=== PATIENT | male | born 1965 | race Caucasian/White ===

== ENCOUNTER → 2020-10-22 09:21 | Outpatient (BNVA) | payer SELFPAY | PROVIDERS: Family Provider Nurse Practitioner; Visit Provider Nurse Practitioner | DX: R73.9 Hyperglycemia, unspecified (principal); M51.36 Other intervertebral disc degeneration, lumbar region; J44.9 Chronic obstructive pulmonary disease, unspecified | CPT/HCPCS: 80053; 80061; 81000; 83036; 84443; 85025 ==

== ENCOUNTER 2021-03-12 19:58 | Emergency (ER) | payer SELFPAY ==
[2021-03-12 20:15] VITALS: BP 144/80; PULSE 108; RESP 20; TEMP 39.4; O2SAT 93; BMI 33.3
--- NOTE | 2021-03-12 20:42 | XRR_ITS ---
PROCEDURE INFORMATION: Exam: XR Chest Exam date and time: 03/12/2021 8:42 PM Age: 55 years old Clinical indication: Dyspnea and fever; Additional info: Fever/ dyspnea TECHNIQUE: Imaging protocol: XR of the chest. Views: 1 view. COMPARISON: CT chest [facility] [id number] 12/27/2016 11:17 AM FINDINGS: Lungs: Bibasilar atelectasis versus infiltrate. Pleural spaces: Unremarkable. No pleural effusion. No pneumothorax. Heart/Mediastinum: Unremarkable. No cardiomegaly. Bones/joints: Unremarkable. XR/XR chest 1V portable [id number] IMPRESSION: Bibasilar atelectasis versus infiltrate.
[2021-03-12] MEDS: acetaminophen 325 mg Tablet 1000 MG PO (21:11)
[2021-03-12] MEDS: ketorolac 30 mg/mL INJ 15 MG IVP (21:12)
[2021-03-12] MEDS: sodium chloride 0.9% 1,000 ML 999 ML IV (21:14)
[2021-03-12 21:19] VITALS: O2SAT 96
[2021-03-12 21:27] LABS: Basophils % 0.6 %; Eosinophils % 0.2 %; Hematocrit 47.1 % (42.0-52.0); Hemoglobin 15.7 g/dL (11.7-16.6); Lymphocytes # 0.9 10^3/uL (0.8-4.8); Lymphocytes % 13.9 %; Mean Corpuscular HGB Conc 33.3 g/dL (30.0-36.0); Mean Corpuscular Hemoglobin 31.3 pg (28.0-34.0); Mean Corpuscular Volume 93.8 fL (80-94); Mean Platelet Volume 11.2 fL (7.4-10.4); Monocytes # 0.7 10^3/uL (0.2-0.9); Monocytes % 10.5 %; Neutrophils # 4.89 10^3/uL (1.8-7.7); Neutrophils % 74.6 %; Nucleated Red Blood Cells % 0 %; Platelet Count 212 10^3/cmm (130-400); Red Blood Count 5.02 10^6/uL (4.1-5.3); Red Cell Distribution Width 13.2 % (12.1-15.1); White Blood Count 6.6 10^3/uL (4.0-10.0)
[2021-03-12 21:35] LABS: Add Urine Microscopic? YES; Bilirubin Urine Neg (Negative); Blood Urine 2+ (Negative); Glucose Urine UA Norm (Normal); Ketones Urine Negative (Negative); Leukocyte Esterase Urine Negative (Negative); Nitrate Urine Negative (Negative); Protein Urine Neg (Negative); Urine Appearance Clear (CLEAR); Urine Color Yellow (Yellow); Urobilinogen Urine Norm (Negative); pH Urine 5 (5-7)
[2021-03-12] MEDS: albuterol 8 gm MDI 2 PUFF INHALATION (21:41)
[2021-03-12 21:42] VITALS: PULSE 94; RESP 22; O2SAT 95
[2021-03-12 21:43] LABS: Add Urine Culture? No; RBC Urine 0-4 /hpf (0-2)
[2021-03-12 21:44] LABS: Lactic Sepsis W/Reflex 1.4 mmol/L (0.5-2.2)
[2021-03-12 21:46] LABS: Troponin(5th) Baseline 7 ng/L (0-15)
[2021-03-12 21:51] LABS: Influenza A by IFA Negative (Negative); Influenza B by IFA Negative (Negative); SARS Covid-2 Antigen Negative (Negative)
[2021-03-12 21:52] LABS: Rapid Strep A Test Negative (Negative)
[2021-03-12 21:56] LABS: Alanine Aminotransferase 11 U/L (0-41); Albumin Level 4.5 g/dL (3.5-5.2); Alkaline Phosphatase 117 IU/L (40-130); Anion Gap 15.7 (5-19); Aspartate Amino Transferase 12 U/L (0-40); Blood Urea Nitrogen 9 mg/dL (6-20); Carbon Dioxide 26 mmol/L (22-29); Chloride 96 mmol/L (98-107); Creatinine Clr Calc Pharmacy 93.7429; Globulin 2.6 g/dL (1.3-4.6); Glucose 97 mg/dL (65-115); NT Pro B Type Natriuretic Pept 95 pg/mL (0-125); Osmolality Calculated 277 mOsm/kg (285-295); Potassium 3.7 mmol/L (3.5-5.1); Sodium 134 mmol/L (136-145); Total Bilirubin 0.5 mg/dL (0.15-1.2); Total Protein 7.1 g/dL (6.6-8.7)
[2021-03-12 22:14] VITALS: BP 98/56; PULSE 89; RESP 17; TEMP 37.5; O2SAT 95
[2021-03-12 22:28] VITALS: BP 100/64; PULSE 84; RESP 16; TEMP 37.6; O2SAT 93
--- NOTE | 2021-03-12 22:44 | ECG_ITS ---
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 Measurements Intervals [place] Rate: 93 P: 19 DC: 118 QRS: 55 QRSD: 93 T: 57 QT: 322 QTc: 401 Interpretive Statements SINUS RHYTHM WITH SHORT DC INTERVAL Compared to ECG 12/28/2016 18:02:28 No significant changes Electronically Signed On 03-13-2021 20:18:54 CDT by Gallito Medina M.D. [id number]
--- NOTE | 2021-03-12 22:47 | ED_ITS ---
HPI - COVID General: Chief Complaint: COVID symptoms Stated Complaint: Fever\Short of Breathe\ Time Seen by Provider: 03/12/21 20:36 Triage information: Has fever, cough or shortness of breath . No known COVID + exposure last 14 days History of Present Illness: HPI Narrative: Kenneth is a 55-year-old male with past medical history COPD, atrial fibrillation on Xarelto who comes to the ER complaining he has not felt well for a month and over the past 3 days he has felt worse. He is complaining of headache, body aches, fever with temperature measured at 103 on arrival. Denies neck pain and stiffness. He has been exposed to children with RSV at home. No known Covid contacts. No vaccination for Covid. Also admits shortness of breath. Denies chest pain. COVID 19 common symptoms: positive fever(s), chills, dyspnea, fatigue, body aches and headache(s); negative non-productive cough, productive cough, throat pain, nasal congestion or diarrhea COVID 19 other sytmptoms: negative chest pain or confusion COVID Results: SARS-CoV-2 Antigen (Rapid) Negative (Negative) 03/12/21 21:17 03/12/21 Review of Systems General: Reports: 10 or more systems reviewed and unremarkable except in HPI and below Const: Reports: fever(s), chills, body aches and fatigue Eyes: Denies: change in vision, blurry vision or eye redness ENMT: Denies: throat pain, swelling of lips/tongue, ear or mastoid pain or nasal congestion Card: Denies: chest pain, palpitations, irregular heart rhythm, edema, dyspnea on exertion or orthopnea Resp: Reports: dyspnea and wheezing; Denies: productive cough or non-productive cough GI: Denies: abdominal pain, diarrhea or GI cramping : Denies: flank pain, urinary frequency or urinary urgency Musc: Denies: neck pain, back pain, extremity pain, joint pain, joint redness, limited range of motion or muscle weakness Skin/Breast: Denies: rash, pruritus, erythema, skin pain or skin tenderness Neuro: Reports: headache(s); Denies: numbness in extremities, weakness in extremities, sensory changes, difficulty walking, dizziness, confusion or Slurred speech present Psych: Denies: anxiety or depression Endo: Denies: polyuria All/Imm: Denies: urticaria, throat swelling or tongue swelling PFSH ED PFSH: Medical History (Updated 03/12/21 @ 22:47 by Theo Davis MD) Anxiety Atrial fibrillation Chronic pain of left heel DDD (degenerative disc disease), lumbar History of CVA with residual deficit Surgical History (Updated 10/22/20 @ 09:02 by GUTIERREZ Falk) History of coronary angiogram 2016 at [facility] History of foot surgery left heel 2014 Family History Other Dementia Hypertension Lung disease Stroke Denies family history of Diabetes Clotting disorder Chronic kidney disease (CKD) Anesthesia complication Bleeding disorder Cancer Social History Smoking and tobacco status: current every day smoker Second hand smoke exposure: No Smoking risk assessment/counseling performed?: Yes Alcohol intake: current Alcohol intake frequency: holidays/special occasions only Desire information about alcohol rehabilitation?: No Counseling given: No Desire information about substance/drug rehabilitation?: No Counseling given: No Adopted: No Caregiver/support person: No Lives independently: Yes Household members: children Housing: House Marital status: Number of children: 1 Number of grandchildren: 2 service: No Current occupational status: employed Current occupation: [employer] History of recent travel: No Current gender identity: Male Physical Exam Narrative: EXAM NARRATIVE: Fever 103. Sinus rhythm upper 90s heart rate. Const: COMMON NORMALS: no acute distress, average body habitus, patient oriented x3, no limitations, healthy appearing, alert and well nourished GENERAL APPEARANCE: cooperative, comfortable, well kempt and well developed ORIENTATION/CONSCIOUSNESS: Yes awake, Yes oriented to person, Yes oriented to place and Yes oriented to time HENMT: COMMON NORMALS: normocephalic, external ears normal and Normal external nose present HEAD & SCALP: normal to inspection and normocephalic NOSE: Normal external nose present EXTERNAL EAR: Yes external ears normal MOUTH: Normal oral and palatal mucosa present THROAT: posterior oropharynx normal Eye: COMMON NORMALS: Equal, round and reactive pupils present and EOMs intact bilaterally GENERAL EYE: appearance normal, both eyes and all related structures PUPIL: Yes Equal, round and reactive pupils present Neck/C-Spine: COMMON NORMALS: full ROM, no lymphadenopathy, no meningeal signs and no JVD GENERAL: Yes normal visual inspection Lymph: LYMPHATIC: no lymphadenopathy noted Chest: COMMONS NORMALS: normal inspection of the chest and normal palpation of entire chest wall Resp: COMMON NORMALS: normal respiratory effort, No retractions, No use of accessory muscles, clear to auscultation bilaterally and percussion normal EFFORT & INSPECTION: Yes able to speak in complete sentences AUSCULTATION: clear to auscultation bilaterally PERCUSSION: percussion normal Cardio: COMMON NORMALS: no JVD, regular rate, regular rhythm, S1 normal heart sound present, S2 normal heart sound present and Peripheral pulses 2+ throughout RATE: regular rate RHYTHM: regular rhythm HEART SOUNDS: S1 normal heart sound present and S2 normal heart sound present PERIPHERAL PULSES: Peripheral pulses 2+ throughout OTHER: Sinus rhythm upper 90s heart rate. GI: COMMON NORMALS: Normal to inspection, nondistended, normoactive bowel sounds present, Soft to palpation, non-tender and no masses INSPECTION: Yes normal to inspection PALPATION: Yes Soft to palpation : COMMON NORMALS: Yes no CVA tenderness BLADDER/KIDNEY EXAM: Yes no CVA tenderness Back/Pelvis: COMMON NORMALS: no CVA tenderness, thoracic and lumbar spine normal to inspection, no thoracic nor lumbar tenderness and thoraco-lumbar ROM normal Extremity: COMMON NORMALS: normal to inspection, full ROM, capillary refill normal, no joint enlargement and no pedal edema GENERAL: Yes normal exam except as noted Neuro: COMMON NORMALS: patient oriented x3, CN's II-XII intact bilaterally, moves all extremities, no focal motor deficits, no sensory deficits noted and gait normal SENSORIUM/ORIENTATION: Yes alert, Yes oriented to person, Yes oriented to place and Yes oriented to time MENINGEAL SIGNS: Yes no meningeal signs Psych: COMMON NORMALS: mental status grossly normal, Normal thought process present, cooperative, normal affect and speech normal APPEARANCE: Yes well kempt ATTITUDE: Yes calm SPEECH: Yes normal speech THOUGHT PROCESS: Normal thought process present Skin: COMMON NORMALS: no rashes or lesions noted GENERAL SKIN EXAM: no rashes or lesions noted Course Vital Signs: Vital signs: Vital Signs Temperature 99.6 F 03/12/21 22:28 Pulse Rate 84 03/12/21 22:28 Respiratory Rate 16 07/17/21 22:28 Blood Pressure 100/64 07/17/21 22:28 Pulse Oximetry 93 03/12/21 22:28 MDM - COVID MDM Narrative: Medical decision making narrative: The patient came in with flulike symptoms and was swabbed for Covid, influenza, strep, RSV and all were negative. He also has chronic COPD and has been feeling bad for a month he says. He was given a liter of fluids, Tylenol, Toradol, albuterol. Within a couple hours his temperature reduced to 99.6 with great improvement of his symptoms. He is no longer short of breath or fatigue. His headache is much improved and body aches much improved. I gave him prednisone and azithromycin as his chest x-ray did show a pneumonia as well. Likely triggered a COPD exacerbation. I recommended he see his primary care physician early next week and return to the ER with any worsening symptoms. Drink lots of fluids. Tylenol for fever. Lab Data: Labs: Lab Results 03/12/21 03/12/21 03/12/21 Range/Units 21:17 21: 21:17 WBC 6.6 (4.0-10.0) 10^3/ uL RBC 5.02 (4.1-5.3) 10^6/u L Hgb 15.7 (11.7-16.6) g/dL Hct 47.1 (42.0-52.0) % MCV 93.8 (80-94) fL MCH 31.3 (28.0-34.0) pg MCHC 33.3 (30.0-36.0) g/dL RDW 13.2 (12.1-15.1) % Plt Count 212 (130-400) 10^3/c mm MPV 11.2 H (7.4-10.4) fL Neut % (Auto) 74.6 % Lymph % (Auto) 13.9 % [place] % (Auto) 10.5 % Eos % (Auto) 0.2 % Baso % (Auto) 0.6 % Neut # (Auto) 4.89 (1.8-7.7) 10^3/u L Lymph # (Auto) 0.9 (0.8-4.8) 10^3/u L [place] # (Auto) 0.7 (0.2-0.9) 10^3/u L Eos # (Auto) 0.0 (0.0-0.8) 10^3/u L Baso # (Auto) 0.0 (0.0-0.1) 10^3/u L Nucleated RBC % (a uto) 0 % Nucleated RBCs # 0.0 /100WBC Sodium 134 L (136-145) mmol/L Potassium 3.7 (3.5-5.1) mmol/L Chloride 96 L (98-107) mmol/L Carbon Dioxide 26 (22-29) mmol/L Anion Gap 15.7 (5-19) BUN 9 (6-20) mg/dL Creatinine 0.9 (0.7-1.2) mg/dL GFR Calculation 87.0 L (90-130) mL/min Glucose 97 (65-115) mg/dL Calculated Osmolal ity 277 L (285-295) mOsm/k g Lactic Acid (0.5-2.2) mmol/L Calcium 9.0 (8.5-10.5) mg/dL Total Bilirubin 0.5 (0.15-1.2) mg/dL AST 12 (0-40) U/L ALT 11 (0-41) U/L Alkaline Phosphata se 117 (40-130) IU/L Troponin T Baselin e 7 (0-15) ng/L NT-Pro-B Natriuret Pep 95 (0-125) pg/mL Total Protein 7.1 (6.6-8.7) g/dL Albumin 4.5 (3.5-5.2) g/dL Globulin 2.6 (1.3-4.6) g/dL Urine Color (Yellow) Urine Appearance (CLEAR) Urine pH (5-7) Ur Specific Gravit y (1.005-1.030) Urine Protein (Negative) Urine Glucose (UA) (Normal) Urine Ketones (Negative) Urine Blood (Negative) Urine Nitrate (Negative) Urine Bilirubin (Negative) Urine Urobilinogen (Negative) mg/dL Ur Leukocyte Sandra ase (Negative) Urine RBC (0-2) /hpf Urine WBC (0-5) /hpf Ur Squamous Epith Cells (0-5) /hpf Amorphous Sediment Urine Bacteria (NONE) /hpf Influenza Type A A g (Negative) Influenza Type B A g (Negative) SARS-CoV-2 Ag (Rap id) (Negative) Group A Strep Rapi d (Negative) 03/12/21 03/12/21 03/12/21 Range/Units 21:17 21:17 21:17 WBC (4.0-10.0) 10^3/ uL RBC (4.1-5.3) 10^6/u L Hgb (11.7-16.6) g/dL Hct (42.0-52.0) % MCV (80-94) fL MCH (28.0-34.0) pg MCHC (30.0-36.0) g/dL RDW (12.1-15.1) % Plt Count (130-400) 10^3/c mm MPV (7.4-10.4) fL Neut % (Auto) % Lymph % (Auto) % [place] % (Auto) % Eos % (Auto) % Baso % (Auto) % Neut # (Auto) (1.8-7.7) 10^3/u L Lymph # (Auto) (0.8-4.8) 10^3/u L [place] # (Auto) (0.2-0.9) 10^3/u L Eos # (Auto) (0.0-0.8) 10^3/u L Baso # (Auto) (0.0-0.1) 10^3/u L Nucleated RBC % (a uto) % Nucleated RBCs # /100WBC Sodium (136-145) mmol/L Potassium (3.5-5.1) mmol/L Chloride (98-107) mmol/L Carbon Dioxide (22-29) mmol/L Anion Gap (5-19) BUN (6-20) mg/dL Creatinine (0.7-1.2) mg/dL GFR Calculation (90-130) mL/min Glucose (65-115) mg/dL Calculated Osmolal ity (285-295) mOsm/k g Lactic Acid 1.4 (0.5-2.2) mmol/L Calcium (8.5-10.5) mg/dL Total Bilirubin (0.15-1.2) mg/dL AST (0-40) U/L ALT (0-41) U/L Alkaline Phosphata se (40-130) IU/L Troponin T Baselin e (0-15) ng/L NT-Pro-B Natriuret Pep (0-125) pg/mL Total Protein (6.6-8.7) g/dL Albumin (3.5-5.2) g/dL Globulin (1.3-4.6) g/dL Urine Color Yellow (Yellow) Urine Appearance Clear (CLEAR) Urine pH 5 (5-7) Ur Specific Gravit y 1.010 (1.005-1.030) Urine Protein Neg (Negative) Urine Glucose (UA) Norm (Normal) Urine Ketones Negative (Negative) Urine Blood 2+ H (Negative) Urine Nitrate Negative (Negative) Urine Bilirubin Neg (Negative) Urine Urobilinogen Norm (Negative) mg/dL Ur Leukocyte Sandra ase Negative (Negative) Urine RBC 0-4 H (0-2) /hpf Urine WBC None (0-5) /hpf Ur Squamous Epith Cells None (0-5) /hpf Amorphous Sediment Not Reportable Urine Bacteria None (NONE) /hpf Influenza Type A A g (Negative) Influenza Type B A g (Negative) SARS-CoV-2 Ag (Rap id) (Negative) Group A Strep Rapi d Negative (Negative) 03/12/21 03/12/21 Range/Units 21:17 21:17 WBC (4.0-10.0) 10^3/ uL RBC (4.1-5.3) 10^6/u L Hgb (11.7-16.6) g/dL Hct (42.0-52.0) % MCV (80-94) fL MCH (28.0-34.0) pg MCHC (30.0-36.0) g/dL RDW (12.1-15.1) % Plt Count (130-400) 10^3/c mm MPV (7.4-10.4) fL Neut % (Auto) % Lymph % (Auto) % [place] % (Auto) % Eos % (Auto) % Baso % (Auto) % Neut # (Auto) (1.8-7.7) 10^3/u L Lymph # (Auto) (0.8-4.8) 10^3/u L [place] # (Auto) (0.2-0.9) 10^3/u L Eos # (Auto) (0.0-0.8) 10^3/u L Baso # (Auto) (0.0-0.1) 10^3/u L Nucleated RBC % (a uto) % Nucleated RBCs # /100WBC Sodium (136-145) mmol/L Potassium (3.5-5.1) mmol/L Chloride (98-107) mmol/L Carbon Dioxide (22-29) mmol/L Anion Gap (5-19) BUN (6-20) mg/dL Creatinine (0.7-1.2) mg/dL GFR Calculation (90-130) mL/min Glucose (65-115) mg/dL Calculated Osmolal ity (285-295) mOsm/k g Lactic Acid (0.5-2.2) mmol/L Calcium (8.5-10.5) mg/dL Total Bilirubin (0.15-1.2) mg/dL AST (0-40) U/L ALT (0-41) U/L Alkaline Phosphata se (40-130) IU/L Troponin T Baselin e (0-15) ng/L NT-Pro-B Natriuret Pep (0-125) pg/mL Total Protein (6.6-8.7) g/dL Albumin (3.5-5.2) g/dL Globulin (1.3-4.6) g/dL Urine Color (Yellow) Urine Appearance (CLEAR) Urine pH (5-7) Ur Specific Gravit y (1.005-1.030) Urine Protein (Negative) Urine Glucose (UA) (Normal) Urine Ketones (Negative) Urine Blood (Negative) Urine Nitrate (Negative) Urine Bilirubin (Negative) Urine Urobilinogen (Negative) mg/dL Ur Leukocyte Sandra ase (Negative) Urine RBC (0-2) /hpf Urine WBC (0-5) /hpf Ur Squamous Epith Cells (0-5) /hpf Amorphous Sediment Urine Bacteria (NONE) /hpf Influenza Type A A g Negative (Negative) Influenza Type B A g Negative (Negative) SARS-CoV-2 Ag (Rap id) Negative (Negative) Group A Strep Rapi d (Negative) COVID Results: SARS-CoV-2 Antigen (Rapid) Negative (Negative) 03/12/21 21:17 03/12/21 Discharge Plan Discharge Patient Disposition: Home Clinical Impression: Pneumonia, COPD (chronic obstructive pulmonary disease) Condition: Stable Prescriptions: New azithromycin 250 mg tablet 250 mg PO DAILY 4 Days Qty: 4 RF: 0 Medrol (Jason) 4 mg tablets,dose pack See Rx Instructions .ROUTE .COMPLEX Qty: 21 RF: 0 albuterol sulfate 90 mcg/actuation HFA aerosol inhaler 2 inh inhalation Q6H PRN (Reason: shortness of breath or wheezing) 30 Days RF: 0 No Action albuterol sulfate 2.5 mg /3 mL (0.083 %) solution for nebulization 2.5 mg inhalation Q4H PRN (Reason: shortness of breath or wheezing) Qty: 300 RF: 0 diclofenac sodium 75 mg tablet,delayed release (DR/EC) 75 mg PO BID RF: 0 Hold Instructions: Doctor's Order metoprolol tartrate 50 mg tablet 50 mg PO BID Qty: 60 RF: 2 Xarelto 20 mg tablet 20 mg PO DAILY Qty: 30 RF: 2 tizanidine 4 mg tablet 4 mg PO TID Qty: 90 RF: 2 gabapentin 600 mg tablet 600 mg PO TID Qty: 90 RF: 2 Discharge Orders: Discharge ED (Routine); Ordered 03/12/21 Ordered By: Theo Davis Discharge Diet: Advance as tolerated Discharge Activity: Resume usual activity Patient Instructions: Chronic Obstructive Pulmonary Disease (ED), Bacterial Pneumonia (ED), Opioid Safety Activity Restrictions/Additional Instructions: You are likely suffering from pneumonia and a COPD exacerbation. Please take the antibiotics and steroids as well as use your albuterol at home to help you breathe. Return to the ER at anytime with worsening symptoms. Take Tylenol for pain and fever. Drink lots of fluids and follow-up with your primary care physician early next week. Again return to the ER at anytime with worsening symptoms. Coding Level of Care Code ED Food Services Coordinator for Shannan Crawford
[2021-03-12] MEDS: predniSONE 20 mg Tablet 40 MG PO (23:13)
[2021-03-12] MEDS: azithromycin 250 mg Tablet 500 MG PO (23:13)
[2021-03-12 23:30] VITALS: BP 110/70; PULSE 81; RESP 18; O2SAT 95
== END 2021-03-12 23:36 | disposition home or self-care (01) ==
PROVIDERS: Emergency Provider Family Medicine
DX: J44.0 Chronic obstructive pulmonary disease with (acute) lower respiratory infection (principal); J18.9 Pneumonia, unspecified organism; Z86.73 Personal history of transient ischemic attack (TIA), and cerebral infarction without residual deficits; F17.210 Nicotine dependence, cigarettes, uncomplicated; Z20.822 Contact with and (suspected) exposure to COVID-19
CPT/HCPCS: 71045; 80053; 81001; 83605; 83880; 84484; 85025; 87040; 87081; 87426; 87804; 87880; 93005; 94640; 96361; 96374; 99284; J1885; J3535; J7030; J7512; Q0144

== ENCOUNTER → 2021-03-15 13:41 | Outpatient (BNVA) | payer SELFPAY | PROVIDERS: PCP Nurse Practitioner; Visit Provider Nurse Practitioner | DX: J44.9 Chronic obstructive pulmonary disease, unspecified (principal) | CPT/HCPCS: 71046; 85025 ==

== ENCOUNTER 2021-03-23 11:11 | Outpatient (CLI) | payer SELFPAY ==
--- NOTE | 2021-03-23 11:30 | XR_ITS ---
WS: [id number] Comparison 08/13/2019 Exam: XR lumbar spine 2-3V* [id number] Date/Time of Exam: 03/23/2021 11:20 AM Reason For Exam: M51.36 - Other intervertebral disc degeneration, lumbar r... No acute fracture or dislocation. Degenerative vacuum disks at L4-5 and L5-S1. Spondylosis. Slight de generative narrowing of the remaining discs. Facet arthropathy at all levels. Posterior elements are otherwise intact. SI joints are open. XR/XR lumbar spine 2-3V* [id number] IMPRESSION: 1. Moderate degenerative changes of the lumbar spine. No fracture or malalignme nt noted. Similar findings on prior study.
== END 2021-03-23 11:12 | disposition home or self-care (01) ==
PROVIDERS: PCP Nurse Practitioner; Visit Provider Nurse Practitioner Family
DX: M51.36 Other intervertebral disc degeneration, lumbar region (principal); M54.5 Low back pain
CPT/HCPCS: 72100

== ENCOUNTER 2021-05-06 16:03 | Outpatient (CLI) | payer SELFPAY ==
--- NOTE | 2021-05-06 16:45 | MR_ITS ---
WS: [id number] MRI LUMBAR SPINE NONCONTRAST HISTORY: M54.5 - Low back pain COMPARISON: 03/23/2021 TECHNIQUE: Sagittal and axial multisequence imaging is submitted. Straightening and reversal of the cervical spine. Mild ectopia cerebellar tonsils. Moderate degenerat kel disc disease throughout the cervical and thoracic spine. Straightening and mild RIGHT curvature of the lumbar spine. Disc spaces are narrowed. Most significan t degeneration is at L4-5. No lumbar spine fracture. Reactive marrow edema along several of the endplates. Fatty replacement wit hin the vertebral bodies and hemangiomas. Conus terminates normally at L1-2 disc level. L1-L2: Mild annular disc bulging with ligamentum flavum hypertrophy and facet arthritis. There is an annular fissure in the LEFT foramen. Mild bilateral foraminal narrowing. L2-L3: Osteophytic ridging and disc bulging and ligamentum flavum hypertrophy and facet arthritis. Mi ld bilateral subarticular recess and foraminal stenosis. L3-L4: Mild annular disc bulging and osteophytic ridging. Moderate LEFT facet joint arthritis. Mild a symmetry of the LEFT ligamentum flavum hypertrophy. Shallow central disc protrusion. Very mild centra l stenosis and encroachment into the lateral recesses. Moderate bilateral foraminal subarticular rece ss stenosis, slightly greater on the LEFT. L4-L5: Marked annular disc bulging and osteophytic ridging encroaching into the thecal sac and forame n. Facet joint arthritis and disc and osteophyte causing mild central stenosis. Moderate to severe bi lateral subarticular recess and foraminal stenosis. There is contact on the L4 and L5 nerve roots colette aterally. L5-S1: Mild asymmetric disc bulging, greatest to the LEFT. Complete effacement of fat in the foramen bilaterally. Severe bilateral subarticular and foraminal stenosis. There is also a central disc protr usion with moderate facet joint arthritis. Significant contact upon the L5 nerve roots bilaterally. Paravertebral soft tissues are negative. MR/MR lumbar spine wo con* [id number] IMPRESSION: 1. Advanced degenerative changes of the lumbar spine. 2. Severe bilateral subarticular recess and foraminal stenosis at L5-S1 with significant encroachment on the L5 nerve roots bilaterally. 3. Moderate to severe bilateral subarticular recess and foraminal stenosis at L4-5. Disc and osteophyte contact on both the L4 and L5 nerve roots. 4. Mild central stenosis with a central disc protrusion at L4-5. 5. Moderate bilateral foraminal subarticular recess stenosis, LEFT greater mery n RIGHT at L3-4. Mild bilateral foraminal stenosis at L1-2 and L2-3 and mild bi lateral subarticular recess stenosis at L2-3.
== END 2021-05-06 16:04 | disposition home or self-care (01) ==
LOC: RADSHAW 16:05
PROVIDERS: PCP Nurse Practitioner; Visit Provider Nurse Practitioner Family
DX: M51.36 Other intervertebral disc degeneration, lumbar region (principal); R26.9 Unspecified abnormalities of gait and mobility; M48.07 Spinal stenosis, lumbosacral region; M48.061 Spinal stenosis, lumbar region without neurogenic claudication; M25.78 Osteophyte, vertebrae; M51.26 Other intervertebral disc displacement, lumbar region
CPT/HCPCS: 72148

== ENCOUNTER → 2021-06-02 11:16 | Outpatient (BNVA) | payer SELFPAY | PROVIDERS: PCP Nurse Practitioner; Referring Provider Nurse Practitioner Family; Visit Provider Physician Assistant | DX: M54.50 Low back pain, unspecified (principal); M47.816 Spondylosis without myelopathy or radiculopathy, lumbar region | CPT/HCPCS: 72120 ==

== ENCOUNTER 2021-08-14 10:05 | Emergency (ER) | payer BC, SELFPAY ==
[2021-08-14] VITALS (10 sets, daily range): BP systolic 107–132; BP diastolic 71–89; PULSE 80–106; RESP 17–20; TEMP 36.1; O2SAT 89–95; BMI 31.6
--- NOTE | 2021-08-14 10:22 | XRR_ITS ---
PROCEDURE INFORMATION: Exam: XR Chest Exam date and time: 08/14/2021 10:22 AM Age: 56 years old Clinical indication: Shortness of breath; Additional info: SOB TECHNIQUE: Imaging protocol: XR of the chest. Views: 1 view. Total images: 1 COMPARISON: CR XR chest 2V* [id number] 03/15/2021 1:40 PM FINDINGS: Lungs: Unremarkable. No consolidation. Pleural spaces: Unremarkable. No pleural effusion. No pneumothorax. Heart/Mediastinum: Unremarkable. No cardiomegaly. Bones/joints: Old right rib fractures are evident. XR/XR chest 1V portable [id number] IMPRESSION: No acute cardiopulmonary process.
--- NOTE | 2021-08-14 10:23 | ECG_ITS ---
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
--- NOTE | 2021-08-14 10:24 | ED_ITS ---
HPI - SOB/Dyspnea General: Chief Complaint: Shortness of Breath/Dyspnea Stated Complaint: TROUBLE BREATHING Time Seen by Provider: 08/14/21 10:09 Source: patient Mode of arrival: ambulatory Limitations: no limitations History of Present Illness: HPI Narrative: 56-year-old male has a history of longtime smoker with a history of COPD states that over the last 3 to 4 days has been having increasing cough shortness of breath and wheezing he states he feels like he just cannot get a deep breath in. He states he has been having some sharp chest pain as well especially with his cough. He states that he still currently smokes and is also been out of his nebulizer nebs over the last few weeks. Denies any worst improving factors. Associated symptoms: Deny abdominal pain, chest pain, fever(s), nausea or vomiting Review of Systems Const: Denies: fever(s), chills, body aches or change in appetite Eyes: Denies: blurry vision or eye discomfort ENMT: Denies: throat pain or dental pain Card: Denies: chest pain Resp: Reports: dyspnea, non-productive cough and wheezing GI: Denies: abdominal pain, nausea, vomiting or diarrhea : Denies: dysuria Musc: Denies: neck pain or back pain Skin/Breast: Denies: rash Neuro: Denies: headache(s) Psych: Denies: depression Nico/Lymph: Denies: easy bruising All/Imm: Denies: urticaria PFSH ED PFSH: Medical History Anxiety Atrial fibrillation Chronic pain of left heel DDD (degenerative disc disease), lumbar History of CVA with residual deficit Surgical History History of coronary angiogram 2017 at [facility] History of foot surgery left heel 2014 Family History Other Dementia Hypertension Lung disease Stroke Denies family history of Diabetes Clotting disorder Chronic kidney disease (CKD) Anesthesia complication Bleeding disorder Cancer Social History Smoking and tobacco status: never smoked Second hand smoke exposure: No Smoking risk assessment/counseling performed?: Yes Alcohol intake: current Alcohol intake frequency: holidays/special occasions only Desire information about alcohol rehabilitation?: No Counseling given: No Desire information about substance/drug rehabilitation?: No Counseling given: No Adopted: No Caregiver/support person: No Lives independently: Yes Household members: children Housing: House Marital status: Number of children: 1 Number of grandchildren: 2 service: No Current occupational status: employed Current occupation: [employer] History of recent travel: No Current gender identity: Male Physical Exam Const: COMMON NORMALS: no acute distress, patient oriented x3 and healthy appearing HENMT: COMMON NORMALS: normocephalic and atraumatic HEAD & SCALP: normocephalic and atraumatic Eye: COMMON NORMALS: Equal, round and reactive pupils present and EOMs intact bilaterally PUPIL: Yes Equal, round and reactive pupils present Neck/C-Spine: COMMON NORMALS: full ROM and supple Chest: COMMONS NORMALS: normal inspection of the chest and normal palpation of entire chest wall Resp: COMMON NORMALS: normal respiratory effort, No retractions, No use of accessory muscles and clear to auscultation bilaterally AUSCULTATION: clear to auscultation bilaterally Cardio: COMMON NORMALS: regular rate, regular rhythm and No murmurs present (Cardio) RATE: regular rate RHYTHM: regular rhythm GI: COMMON NORMALS: Normal to inspection, nondistended, normoactive bowel sounds present, Soft to palpation, non-tender and no masses PALPATION: Yes Soft to palpation Extremity: COMMON NORMALS: normal to inspection and full ROM Neuro: COMMON NORMALS: patient oriented x3, moves all extremities and no focal motor deficits Psych: COMMON NORMALS: mental status grossly normal, Normal thought process present and cooperative THOUGHT PROCESS: Normal thought process present Skin: COMMON NORMALS: no rashes or lesions noted and no wounds GENERAL SKIN EXAM: no rashes or lesions noted Course Vital Signs: Vital signs: Vital Signs Temperature 97.0 F L 08/14/21 10:13 Pulse Rate 100 08/14/21 12:04 Respiratory Rate 17 08/14/21 11:16 Blood Pressure 110/76 08/14/21 12:04 Pulse Oximetry 92 08/14/21 12:04 MDM - SOB/Dyspnea MDM Narrative: Medical decision making narrative: Patient presents here with cough and dyspnea COPD exacerbation he does feel improved here after breathing treatment still requires 2 L of oxygen he is in minimal distress here no pneumonia D-dimer is negative no signs of Covid we will set him up with home oxygen prescribe him albuterol nebs and steroids and get him follow-up with pulmonology he understands agrees to plan. Lab Data: Labs: Lab Results 08/14/21 08/14/21 08/14/21 10:54 10:54 10:54 WBC 5.4 10^3/uL 10^3/ uL (4.0-10.0) RBC 5.14 10^6/uL 10^6 /uL (4.1-5.3) Hgb 16.1 g/dL g/dL (11.7-16.6) Hct 48.0 % % (42.0-52.0) MCV 93.4 fl fl (80-94) MCH 31.3 pg pg (28.0-34.0) MCHC 33.5 g/dL g/dL (30.0-36.0) RDW 12.8 % % (12.1-15.1) Plt Count 202 10^3/cmm 10^3 /cmm (130-400) MPV 11.1 fL H fL (7.4-10.4) Neut % (Auto) 70.2 % % Lymph % (Auto) 16.2 % % [place] % (Auto) 12.4 % % Eos % (Auto) 0.2 % % Baso % (Auto) 0.6 % % Neut # (Auto) 3.81 10^3/uL 10^3 /uL (1.8-7.7) Lymph # (Auto) 0.9 10^3/uL 10^3/ uL (0.8-4.8) [place] # (Auto) 0.7 10^3/uL 10^3/ uL (0.2-0.9) Eos # (Auto) 0.0 10^3/uL 10^3/ uL (0.0-0.8) Baso # (Auto) 0.0 10^3/uL 10^3/ uL (0.0-0.1) Nucleated RBC % (a uto) 0 % % Nucleated RBCs # 0.0 /100WBC /100W BC D-Dimer Sodium Cancelled Potassium Cancelled Chloride Cancelled Carbon Dioxide Cancelled Anion Gap Cancelled BUN Cancelled Creatinine Cancelled GFR Calculation Cancelled Glucose Cancelled Calculated Osmolal ity Cancelled Calcium Cancelled Total Bilirubin Cancelled AST Cancelled ALT Cancelled Alkaline Phosphata se Cancelled Troponin T Baselin e 8 ng/L ng/L (0-15) NT-Pro-B Natriuret Pep Cancelled Total Protein Cancelled Albumin Cancelled Globulin Cancelled SARS-CoV-2 Ag (Rap id) 08/14/21 08/14/21 08/14/21 10:54 11:34 11:39 WBC RBC Hgb Hct MCV MCH MCHC RDW Plt Count MPV Neut % (Auto) Lymph % (Auto) [place] % (Auto) Eos % (Auto) Baso % (Auto) Neut # (Auto) Lymph # (Auto) [place] # (Auto) Eos # (Auto) Baso # (Auto) Nucleated RBC % (a uto) Nucleated RBCs # D-Dimer <= 0.27 ug/mIFEU ug/mIFEU (0-0.59) Sodium 139 mmol/L mmol/L (136-145) Potassium 4.0 mmol/L mmol/L (3.5-5.1) Chloride 100 mmol/L mmol/L (98-107) Carbon Dioxide 22 mmol/L mmol/L (22-29) Anion Gap 21.0 H (5-19) BUN 13 mg/dL mg/dL (6-20) Creatinine 0.7 mg/dL mg/dL (0.7-1.2) GFR Calculation 115.8 mL/min mL/m in (90-130) Glucose 96 mg/dL mg/dL (65-115) Calculated Osmolal ity 288 mOsm/kg mOsm/ kg (285-295) Calcium 8.9 mg/dL mg/dL (8.5-10.5) Total Bilirubin 0.7 mg/dL mg/dL (0.15-1.2) AST 15 U/L U/L (0-40) ALT 11 U/L U/L (0-41) Alkaline Phosphata se 78 IU/L IU/L (40-130) Troponin T Baselin e NT-Pro-B Natriuret Pep 135 pg/mL H pg/mL (0-125) Total Protein 7.3 g/dL g/dL (6.6-8.7) Albumin 4.1 g/dL g/dL (3.5-5.2) Globulin 3.2 g/dL g/dL (1.3-4.6) SARS-CoV-2 Ag (Rap id) Negative (Negative) Imaging Data^: CXR: Attestation: I personally reviewed and interpreted this imaging study as follows: Radiologist's impression: [address] [place] [address] XRay Report Signed Patient: Juan Alberto Wolfe Unit #: [id number] : 1965 Age/Sex: 56 / M ADM Date: 08/14/21 Loc: ER Room/Bed: Attending Dr: Ordering Provider/Ordering MD: Cruz Hernandez MD Date of Service: 08/14/21 Procedure(s): XR chest 1V portable [id number] Accession Number(s): [id number] Report Number: [id number] PROCEDURE INFORMATION: Exam: XR Chest Exam date and time: 08/14/2021 10:22 AM Age: 56 years old Clinical indication: Shortness of breath; Additional info: SOB TECHNIQUE: Imaging protocol: XR of the chest. Views: 1 view. Total images: 1 COMPARISON: CR XR chest 2V* [id number] 03/15/2021 1:40 PM FINDINGS: Lungs: Unremarkable. No consolidation. Pleural spaces: Unremarkable. No pleural effusion. No pneumothorax. Heart/Mediastinum: Unremarkable. No cardiomegaly. Bones/joints: Old right rib fractures are evident. XR/XR chest 1V portable [id number] IMPRESSION: No acute cardiopulmonary process. Dictated By: Albert Cooper MD Signed By: Albert Cooper MD Signed Date/Time: 08/14/21 1156 DD/ 1022 EKG Data^: EKG 1: Attestation: I personally reviewed and interpreted this EKG as follows: EKG Interpretation Date: 08/14/21 EKG interpretation time: 10:42 Interpretation: nsr hr [address] or t wave abnormalities qrs 86 qtc 378 Discharge Plan Discharge Patient Disposition: Home Clinical Impression: COPD (chronic obstructive pulmonary disease) Qualifiers: COPD type: COPD with acute exacerbation Qualified Code(s): J44.1 - Chronic obstructive pulmonary disease with (acute) exacerbation Condition: Stable Prescriptions: New albuterol sulfate 2.5 mg /3 mL (0.083 %) solution for nebulization 2.5 mg INHALATION Q4H PRN (Reason: shortness of breath or wheezing) Qty: 90 RF: 0 prednisone 50 mg tablet 50 mg PO DAILY Qty: 5 RF: 0 No Action tizanidine 4 mg tablet 4 mg PO TID 30 Days Qty: 90 RF: 2 albuterol sulfate 2.5 mg /3 mL (0.083 %) solution for nebulization 2.5 mg inhalation Q4H PRN (Reason: shortness of breath or wheezing) Qty: 300 RF: 0 diclofenac sodium 75 mg tablet,delayed release (DR/EC) 75 mg PO BID RF: 0 Hold Instructions: Doctor's Order Xarelto 20 mg tablet 20 mg PO DAILY Qty: 30 RF: 2 metoprolol tartrate 50 mg tablet 50 mg PO BID Qty: 60 RF: 2 gabapentin 800 mg tablet 800 mg PO TID 30 Days Qty: 90 RF: 1 Medrol (Jason) 4 mg tablets,dose pack See Rx Instructions .ROUTE .COMPLEX Qty: 21 RF: 0 Discharge Orders: Discharge ED (Routine); Ordered 08/14/21 Ordered By: Cruz Hernandez Other Ambulatory Orders: DME: Oxygen (Order) Location: None Selected Ordered By: Cruz Hernadnez Referrals: Robyn Gonzalez, FISCAL ACCOUNTANT-C [Primary Care Provider] - Pramod Smith MD [Physician] - 1-3 days Discharge Diet: Advance as tolerated Discharge Activity: Resume usual activity Patient Instructions: COPD (Chronic Obstructive Pulmonary Disease) (ED) Coding Level of Care Code ED Coat Joiner for g Fwd Exam Comprehensive
[2021-08-14] MEDS: ipratropium-albuterol 3 mL Neb INHALATION (10:53)
[2021-08-14 11:01] LABS: Basophils % 0.6 %; Eosinophils % 0.2 %; Hemoglobin 16.1 g/dL (11.7-16.6); Lymphocytes # 0.9 10^3/uL (0.8-4.8); Lymphocytes % 16.2 %; Mean Corpuscular HGB Conc 33.5 g/dL (30.0-36.0); Mean Corpuscular Hemoglobin 31.3 pg (28.0-34.0); Mean Corpuscular Volume 93.4 fl (80-94); Mean Platelet Volume 11.1 fL (7.4-10.4); Monocytes # 0.7 10^3/uL (0.2-0.9); Monocytes % 12.4 %; Neutrophils # 3.81 10^3/uL (1.8-7.7); Neutrophils % 70.2 %; Nucleated Red Blood Cells % 0 %; Platelet Count 202 10^3/cmm (130-400); Red Blood Count 5.14 10^6/uL (4.1-5.3); Red Cell Distribution Width 12.8 % (12.1-15.1); White Blood Count 5.4 10^3/uL (4.0-10.0)
[2021-08-14 11:21] LABS: Troponin(5th) Baseline 8 ng/L (0-15)
[2021-08-14 11:24] LABS: SARS Covid-2 Antigen Negative (Negative)
[2021-08-14 11:56] LABS: D Dimer <= 0.27 ug/mIFEU (0-0.59)
[2021-08-14 12:09] LABS: Alanine Aminotransferase 11 U/L (0-41); Albumin Level 4.1 g/dL (3.5-5.2); Alkaline Phosphatase 78 IU/L (40-130); Aspartate Amino Transferase 15 U/L (0-40); Blood Urea Nitrogen 13 mg/dL (6-20); Calcium 8.9 mg/dL (8.5-10.5); Carbon Dioxide 22 mmol/L (22-29); Chloride 100 mmol/L (98-107); Globulin 3.2 g/dL (1.3-4.6); Glomerular Filtration Rate 115.8 mL/min (90-130); Glucose 96 mg/dL (65-115); NT Pro B Type Natriuretic Pept 135 pg/mL (0-125); Osmolality Calculated 288 mOsm/kg (285-295); Sodium 139 mmol/L (136-145); Total Bilirubin 0.7 mg/dL (0.15-1.2); Total Protein 7.3 g/dL (6.6-8.7)
[2021-08-14 13:30] LABS: Troponin 5 2HR 8.25 ng/L (0-15); Troponin 5 2HR Delta 0.25 ABS# (0-10)
--- NOTE | 2021-08-14 15:24 | PC.NURSE ---
Pt requesting something for pain, Dr. Hernandez advised x2.
--- NOTE | 2021-08-16 10:24 | PC.SOCIAL ---
Addendum entered by Navya Hanson 09/29/21 15:38: Patient had a follow up appointment scheduled with Dr. Joya at the [facility] - patient did attend appointment. Original Note: Spoke with Nena at [facility] per ED referral pt needs to follow up with [facility]. Appt set for 08/30/2021 at 10:45am at the [facility] and will see Dr Camacho since Dr Camacho does travel to the [facility]. Notified patient and he was not able to write down information but was agreeable to have the appointment sent to his cell phone via text message. This was done and discussed the appt date and time by phone as well.
== END 2021-08-14 15:10 | disposition home or self-care (01) ==
PROVIDERS: Emergency Provider Emergency Medicine; PCP Nurse Practitioner
DX: J44.1 Chronic obstructive pulmonary disease with (acute) exacerbation (principal); Z86.73 Personal history of transient ischemic attack (TIA), and cerebral infarction without residual deficits
CPT/HCPCS: 36415; 71045; 80053; 83880; 84484; 85025; 85378; 87426; 93005; 94640; 96374; 99284; J2930; J7611

== ENCOUNTER → 2021-08-15 13:36 | Outpatient (BNVA) | payer SELFPAY | PROVIDERS: PCP Nurse Practitioner; Visit Provider Nurse Practitioner | DX: I50.9 Heart failure, unspecified (principal); J44.1 Chronic obstructive pulmonary disease with (acute) exacerbation | CPT/HCPCS: 83880; 85025 ==

== ENCOUNTER → 2021-09-06 10:30 | Outpatient (BNVA) | payer BC, SELFPAY | PROVIDERS: PCP Nurse Practitioner; Visit Provider Nurse Practitioner | DX: I48.20 Chronic atrial fibrillation, unspecified (principal) | CPT/HCPCS: 80048; 85025 ==

== ENCOUNTER → 2021-10-24 10:30 | Outpatient (BNVA) | payer BC, SELFPAY | PROVIDERS: PCP Nurse Practitioner; Visit Provider Nurse Practitioner | DX: I48.20 Chronic atrial fibrillation, unspecified (principal) | CPT/HCPCS: 80048; 83735; 84100; 85025 ==

== ENCOUNTER 2021-11-09 10:01 | Outpatient (CLI) | payer BC, SELFPAY ==
--- NOTE | 2021-11-09 10:21 | CT_ITS ---
WS: [id number] LDCT LUNG CANCER SCREENING TECHNIQUE: Noncontrast CT of the chest with coronal and sagittal reformatted images. CLINICAL INFORMATION: F17.210 - Nicotine dependence, cigarettes, uncomplicated COMPARISON: DLP: 87.29 mGy.cm DIvol: Mean CTDIvol: 1.60 (mGy) All CT scans at [facility] use at least one of these dose optimization techniques: automat ed exposure control; mA and/or kV adjustment per patient size (includes targeted exams where dose is matched to clinical indication); or iterative reconstruction. FINDINGS: Subsegmental atelectasis in the lingula. Slight hazy atelectasis in RIGHT lower lobe. Subsegmental at electasis in the RIGHT middle lobe. Tiny calcified granuloma RIGHT upper lobe. Mild aortic calcification. Coronary calcification. No mediastinal or hilar lymphadenopathy. No axilla ry lymphadenopathy. Adrenal glands are normal. Normal GE junction. CT/CT lung screening [id number] IMPRESSION: LUNG-RADS: 1-Negative FOLLOW UP: 12 Month: Continue annual screening with LDCT
== END 2021-11-09 10:02 | disposition home or self-care (01) ==
LOC: RAD 10:03
PROVIDERS: PCP Nurse Practitioner; Visit Provider Internal Medicine Pulmonary Disease
DX: Z12.2 Encounter for screening for malignant neoplasm of respiratory organs (principal); F17.210 Nicotine dependence, cigarettes, uncomplicated
CPT/HCPCS: 71271

== ENCOUNTER → 2021-11-22 11:00 | Outpatient (BNVA) | payer BC, SELFPAY | PROVIDERS: PCP Nurse Practitioner; Visit Provider Nurse Practitioner | DX: Z13.6 Encounter for screening for cardiovascular disorders (principal) | CPT/HCPCS: 80053; 80061 ==

== ENCOUNTER → 2021-12-12 15:39 | Outpatient (BNVA) | payer BC, SELFPAY | PROVIDERS: PCP Nurse Practitioner; Visit Provider Nurse Practitioner | DX: M25.511 Pain in right shoulder (principal) | CPT/HCPCS: 73030 ==

== ENCOUNTER → 2022-01-04 11:43 | Outpatient (BNVA) | payer BC, SELFPAY | PROVIDERS: PCP Nurse Practitioner; Visit Provider Nurse Practitioner | DX: R05.9 Cough, unspecified (principal) | CPT/HCPCS: 71046; 80048; 85025 ==

== ENCOUNTER 2022-01-18 15:00 | Outpatient (CLI) | payer BC, SELFPAY ==
--- NOTE | 2022-01-18 15:19 | PFTS_ITS ---
Date of Study:01/18/22 Date of Dictation: MECHANICS: Forced vital capacity (FVC) is reduced. Forced expiratory volume in one second (FEV1) is reduced. FEV1/FVC is reduced. FLOW VOLUME LOOP: Reduced flow at all lung volumes. No peak expiratory flow on the flow-volume loop. LUNG VOLUMES: Lung volumes are not measured because of claustrophobia. DIFFUSING CAPACITY FOR CARBON MONOXIDE: Mildly reduced. INTERPRETATION: The postbronchodilator spirometry is consistent with moderate obstruction. There is a significant postbronchodilator response. A component of restrictive lung disease cannot be ruled out in the absence of lung volume measurements. Gas exchange (DLCO) is mildly reduced. MTDD
== END 2022-01-18 15:01 | disposition home or self-care (01) ==
LOC: RT 15:02
PROVIDERS: PCP Nurse Practitioner; Visit Provider Internal Medicine Pulmonary Disease
DX: J44.9 Chronic obstructive pulmonary disease, unspecified (principal); F17.210 Nicotine dependence, cigarettes, uncomplicated
CPT/HCPCS: 94060; 94618; 94729

== ENCOUNTER 2022-05-18 09:03 | Outpatient (CLI) | payer BC, SELFPAY ==
--- NOTE | 2022-05-18 09:10 | ECG_ITS ---
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 Interpretive Statements NAME OF STUDY: LEXISCAN SESTAMIBI STRESS TEST INDICATION: Chest Pain PROCEDURE: At the baseline, the blood pressure was 110/87 mmHg with a heart rate of 49 bpm. The electrocardiogram showed sinus bradycardia, normal axis with artifact. The Lexiscan was infused over a period of 20 seconds. A total of 0.4 milligrams of Lexiscan was infused. The stress phase was continued for a total of 5 minutes. Heart rate at the end of the stress phase was 60 bpm with a blood pressure of 115/85 mmHg. The EKG at the peak infusion revealed sinus rhythm with no significant ST-T wave changes. The study was terminated due to protocol completion. Sestamibi was injected 20 seconds after the Lexiscan infusion. Blood pressure at the end of the recovery phase was 112/80 mmHg with a heart rate of 59 beats per minute. CONCLUSION: 1. No significant EKG changes with the LexiScan infusion. 2. No LexiScan induced chest pain or cardiac arrhythmia. 3. Normal blood pressure and heart rate response. 4. Sestamibi/sestamibi perfusion scan pending; see separate report. Electronically Signed On 05-22-2022 12:41:32 CDT by Shi Polo M.D. [email or web address]
--- NOTE | 2022-05-18 09:11 | NMCV_ITS ---
NM jocelyn perf SPECT r/s* [id number] Juan Alberto Wolfe Age: 56 Gender: M : 1965 Exam Date: 05/18/2022 10:14 Ordering Phys: Shi Polo MD ([email or web address]) Technologist: ZAIN Sol Exam Location: [facility] Indications: CHEST PAIN STRESS TEST Please see separate stress test report in [facility] for full findings IMAGE PROTOCOL Rest/Stress 1 Lexiscan Day Radiopharmaceutical Dose (mCi) Administration Site Administered by Rest: Tc-99m 11.0 IV ZAIN Myers Sestamibi Stress:Tc-99m 32.5 IV ZAIN Myers Sestamibi Rest: 60 Discovery 630 Stress: 30 Discovery 630 0.4mg Lexiscan. Images obtained in supine and prone position. SPECT RESULTS Technical Quality: Excellent Raw Data Analysis: Normal Image Corrections: No attenuation or motion correction applied Summed Stress Score: 0 Summed Rest Score: 3 Summed Difference Score: 0 PERFUSION FINDINGS Small size perfusion abnormality of mild severity of mid inferolateral and apical wall on rest images with improved tracer uptake on stress images. This is suggestive of attenuation artifact. FUNCTIONAL RESULTS (calculated via Gated SPECT) Stress Image LV EF (%): 58 Stress EDV (mL):111 TID: 1 Stress ESV (mL):47 FUNCTIONAL FINDINGS: The left ventricle is normal in size. Transient Ischemia Dilatation of 1. There is normal left ventricular systolic function. The left ventricular ejection fraction is normal with a value of 58%. There is normal left ventricular wall thickening. Normal end-diastolic end-systolic volumes. IMPRESSIONS 1. Myocardial perfusion imaging is normal. 2. Overall left ventricular systolic function is normal without regional wall motion abnormalities, LVEF=58%. 3. No EKG changes with Lexiscan infusion. Refer to separate report for details. Shi Polo MD (Electronically Signed) Final Date: 22 May 2022 12:52 S
[2022-05-18 09:46] VITALS: BMI 31.1
[2022-05-18] MEDS: regadenoson 0.4 Mg/5 ml Syringe IVP (10:43)
[2022-05-18 11:05] VITALS: BP 115/85; PULSE 59
== END 2022-05-18 09:04 | disposition home or self-care (01) ==
LOC: CDL 09:07
PROVIDERS: PCP Nurse Practitioner; Visit Provider Internal Medicine Cardiovascular Disease
DX: R07.9 Chest pain, unspecified (principal); I25.10 Atherosclerotic heart disease of native coronary artery without angina pectoris; I48.20 Chronic atrial fibrillation, unspecified
CPT/HCPCS: 78452; 93017; A9500; J2785

== ENCOUNTER → 2022-06-09 10:59 | Outpatient (BNVA) | payer BC, SELFPAY | PROVIDERS: PCP Nurse Practitioner; Visit Provider Nurse Practitioner | DX: I48.20 Chronic atrial fibrillation, unspecified (principal); J44.9 Chronic obstructive pulmonary disease, unspecified | CPT/HCPCS: 80053; 80061; 84443; 85025 ==

== ENCOUNTER → 2023-02-23 09:46 | Outpatient (BNVA) | payer OTHER, SELFPAY | PROVIDERS: PCP Nurse Practitioner; Visit Provider Nurse Practitioner | DX: J44.9 Chronic obstructive pulmonary disease, unspecified (principal); M51.36 Other intervertebral disc degeneration, lumbar region; E87.6 Hypokalemia; I48.91 Unspecified atrial fibrillation; R39.11 Hesitancy of micturition; I25.10 Atherosclerotic heart disease of native coronary artery without angina pectoris | CPT/HCPCS: 80053; 80061; 85025 ==

== ENCOUNTER → 2023-09-24 10:26 | Outpatient (BNVA) | payer OTHER, SELFPAY | PROVIDERS: PCP Nurse Practitioner; Visit Provider Nurse Practitioner | DX: J44.1 Chronic obstructive pulmonary disease with (acute) exacerbation (principal); M51.36 Other intervertebral disc degeneration, lumbar region; I48.91 Unspecified atrial fibrillation; R39.11 Hesitancy of micturition; I25.10 Atherosclerotic heart disease of native coronary artery without angina pectoris; I48.20 Chronic atrial fibrillation, unspecified; M25.50 Pain in unspecified joint; Z12.5 Encounter for screening for malignant neoplasm of prostate | CPT/HCPCS: 80053; 80061; 82306; 82607; 84443; 85025; 85651; 86140 ==

== ENCOUNTER 2023-10-02 09:04 | Outpatient (CLI) | payer OTHER, SELFPAY ==
[2023-10-08 12:48] LABS: COMPLEMENT COMPONENT C3C 150 mg/dL (82-185); COMPLEMENT COMPONENT C4C 33 mg/dL (15-53)
[2023-10-08 13:34] LABS: COMPLEMENT, TOTAL (CH50) 51 U/mL (31-60)
[2023-10-08 14:44] LABS: CENTROMERE B ANTIBODY <1.0 NEG AI (<1.0 NEG); JO-1 ANTIBODY <1.0 NEG AI (<1.0 NEG); RNP ANTIBODY 4.0 POS AI (<1.0 NEG); SCL-70 ANTIBODY <1.0 NEG AI (<1.0 NEG); SJOGREN'S ANTIBODY (SS-A) <1.0 NEG AI (<1.0 NEG); SM ANTIBODY <1.0 NEG AI (<1.0 NEG); SS-B <1.0 NEG AI (<1.0 NEG)
[2023-10-11 08:14] LABS: THYROID PEROXIDASE ANTIBODIES <1 IU/mL (<9)
[2023-10-11 12:00] LABS: ANA PATTERN Nuclear, Speckled; ANA SCREEN, IFA POSITIVE (NEGATIVE); ANA TITER 1:40 titer
[2023-10-18 16:19] LABS: DNA AB (DS) CRITHIDIA TITER 1:20 titer (<1:10); DNA AB (DS) CRITHIDIA,IFA POSITIVE (NEGATIVE)
== END 2023-10-02 09:05 | disposition home or self-care (01) ==
LOC: LAB 09:05
PROVIDERS: PCP Nurse Practitioner; Visit Provider Nurse Practitioner
DX: Z12.5 Encounter for screening for malignant neoplasm of prostate (principal); M25.50 Pain in unspecified joint
CPT/HCPCS: 36415; 86160; 86162; 86235; 86255; 86376; 86431; G0103

== ENCOUNTER → 2024-06-11 08:45 | Outpatient (BNVA) | payer OTHER, SELFPAY | PROVIDERS: PCP Nurse Practitioner; Visit Provider Nurse Practitioner | DX: E55.9 Vitamin D deficiency, unspecified (principal); I25.10 Atherosclerotic heart disease of native coronary artery without angina pectoris | CPT/HCPCS: 80053; 80061; 82306 ==

== ENCOUNTER 2024-08-14 09:10 | Outpatient (CLI) | payer OTHER, SELFPAY ==
[2024-08-14 10:28] LABS: Alanine Aminotransferase 15 U/L (0-41); Albumin Level 4.2 g/dL (3.5-5.2); Alkaline Phosphatase 101 U/L (40-130); Anion Gap 10.6 (5-19); Aspartate Amino Transferase 15 U/L (0-40); Blood Urea Nitrogen 13 mg/dL (8-23); Calcium 9.3 mg/dL (8.5-10.5); Carbon Dioxide 32 mmol/L (22-29); Chloride 102 mmol/L (98-107); Globulin 3.1 g/dL (1.3-4.6); Glomerular Filtration Rate 85.8 mL/min (90-130); Glucose 96 mg/dL (65-115); Osmolality Calculated 290 mOsm/kg (285-295); Potassium 4.6 mmol/L (3.5-5.1); Sodium 140 mmol/L (136-145); Total Bilirubin 0.3 mg/dL (0.15-1.2); Total Protein 7.3 g/dL (6.6-8.7)
== END 2024-08-14 09:11 | disposition home or self-care (01) ==
LOC: LAB 09:11
PROVIDERS: PCP Nurse Practitioner; Visit Provider Nurse Practitioner
DX: B36.9 Superficial mycosis, unspecified (principal)
CPT/HCPCS: 36415; 80053

== ENCOUNTER → 2025-02-23 10:35 | Outpatient (BNVA) | payer OTHER, SELFPAY | PROVIDERS: PCP Nurse Practitioner; Visit Provider Nurse Practitioner | DX: M48.062 Spinal stenosis, lumbar region with neurogenic claudication (principal); E55.9 Vitamin D deficiency, unspecified | CPT/HCPCS: 80053; 80061; 82306; 82607; 84443; 84550; 85025; 85651; 86140 ==

== ENCOUNTER → 2025-04-28 13:52 | Outpatient (BNVA) | payer OTHER, SELFPAY | PROVIDERS: PCP Nurse Practitioner; Visit Provider Orthopaedic Surgery | DX: M48.062 Spinal stenosis, lumbar region with neurogenic claudication (principal) | CPT/HCPCS: 72110 ==